=== PATIENT | male | born 1975 | race Caucasian/White ===

== ENCOUNTER 2021-07-20 10:09 | Inpatient (IN) | payer SELFPAY ==
[~2021-07-20] VITALS: Ht 172.7 cm; Wt 130.3 kg
[2021-07-20] MEDS ORDERED: PANTOPRAZOLE SODIUM 40 MG/VIAL IV STA (18:01)
[2021-07-20] MEDS ORDERED: ONDANSETRON HCL 4MG/2ML INJ IV STA (18:01)
[2021-07-20] MEDS ORDERED: SODIUM CHLORIDE 0.9% 1,000 ML IV ONE (18:15)
[2021-07-20 18:24] LABS: BASOPHILS % 0.4 % (0.0-2.0); EOSINOPHILS % 0.2 % (0.0-5.0); HEMATOCRIT. 25.7 % (42.0-52.0); HEMOGLOBIN. 8.7 g/dL (14.0-18.0); LYMPHOCYTES % 27.2 % (20.0-50.0); MEAN CORPUSCULAR HEMOGLOBIN 30.3 pg (28.0-32.0); MEAN CORPUSCULAR VOLUME 89.6 fL (80.0-94.0); MEAN PLATELET VOLUME 9.4 fl (7.4-10.4); MONOCYTES % 5.3 % (2.0-8.0); NEUTROPHILS % 66.9 % (40.0-76.0); PLATELET 243 x1000/uL (130-400); RED BLOOD CELL COUNT 2.87 mill/uL (4.7-6.1); RED CELL DISTRIBUTION WIDTH 13.3 % (11.6-14.6)
[2021-07-20 18:34] LABS: INR 1.1; PARTIAL THROMBOPLASTIN TIME 21.8 sec (23.4-31.0); PROTHROMBIN TIME 11.4 sec (9.6-11.0)
[2021-07-20 18:41] LABS: CHLORIDE 111 mEq/L (98-107)
[2021-07-20 18:42] LABS: BG BASE EXCESS -2.7 mmol/L (-2.0-2.0); BG CARBOXYHEMOGLOBIN 0.3 % (0.5-1.5); BG FRACTION INSPIRED OXYGEN 21; BG HCO3 ACT 20.3 mmol/L (22.0-26.0); BG OXYHEMOGLOBIN 96.7 % (94.0-97.0); BG PCO2 28.6 mmHg (35.0-45.0); BG PH 7.468 (7.350-7.450); BG PO2 101.9 mmHg (75.0-100.0); BG TOTAL HEMOGLOBIN 9.3 g/dL (12.0-18.0); BG VENT MODE ROOM AIR
[2021-07-20 18:46] LABS: ETHANOL BLOOD < 10 mg/dL
[2021-07-20 19:54] LABS: TOTAL IRON BINDING CAPACITY 286 ug/dL (250-450)
[2021-07-20 20:19] LABS: HEMATOCRIT 26.2 % (42.0-52.0); HEMOGLOBIN 8.7 g/dL (14.0-18.0); MEAN CORPUSCULAR HEMOGLOBIN 31.1 pg (28.0-32.0); MEAN CORPUSCULAR VOLUME 93.8 fL (80.0-94.0); PLATELET 210 x1000/uL (130-400); RED BLOOD CELL COUNT 2.79 mill/uL (4.7-6.1); RED CELL DISTRIBUTION WIDTH 13.4 % (11.6-14.6)
[2021-07-20] MEDS ORDERED: ACETAMINOPHEN 325MG TABLET PO PRN ×2 (20:30)
[2021-07-20] MEDS ORDERED: ONDANSETRON HCL 4MG/2ML INJ IV PRN (20:30)
[2021-07-20] MEDS ORDERED: DIPHENHYDRAMINE 50MG/ML VIAL IV PRN (20:30)
[2021-07-20] MEDS: PANTOPRAZOLE SODIUM 40 MG/VIAL IV SCH (21:03)
[2021-07-20] MEDS: SODIUM CHLORIDE 0.9% 1,000 ML IV SCH (21:04)
[2021-07-20 22:01] LABS: CLARITY URINE CLEAR (CLEAR); COLOR URINE YELLOW (YELLOW); KETONES URINE NEGATIVE (NEGATIVE); LEUKOCYTE ESTERASE URINE TRACE (NEGATIVE); NITRITE URINE NEGATIVE (NEGATIVE); OCCULT BLOOD URINE NEGATIVE (NEGATIVE); PH URINE 5.5 (4.5-8.0); PROTEIN URINE NEGATIVE (NEGATIVE); SPECIFIC GRAVITY URINE 1.023 (1.005-1.030); UROBILINOGEN URINE 0.2 E.U./dL (0.2-1.0)
[2021-07-20 22:19] LABS: *BARBITURATES SCREEN URINE NEGATIVE (NEGATIVE)
[2021-07-20 22:20] LABS: *AMPHETAMINES SCREEN URINE NEGATIVE (NEGATIVE); *BENZODIAZEPINES SCREEN URINE NEGATIVE (NEGATIVE); *COCAINE SCREEN URINE NEGATIVE (NEGATIVE); METHADONE URINE SCREEN PRESUMTIVE POSITIVE (NEGATIVE); OPIATES URINE SCREEN PRESUMTIVE POSITIVE (NEGATIVE); PHENCYCLIDINE URINE SCREEN NEGATIVE (NEGATIVE)
[2021-07-20 22:21] LABS: CANNABINOID URINE SCREEN PRESUMTIVE POSITIVE (NEGATIVE)
[2021-07-20 23:00] VITALS: BP 127/67
[2021-07-21] VITALS (13 sets, daily range): BP systolic 102–159; BP diastolic 43–112
[2021-07-21] MEDS ORDERED: IBUP-2030 PO (00:12)
[2021-07-21] MEDS: SODIUM CHLORIDE 0.9% 1,000 ML IV SCH ×2 (06:14→16:30)
[2021-07-21] MEDS: PANTOPRAZOLE SODIUM 40 MG/VIAL IV SCH ×2 (07:42→20:04)
[2021-07-21] MEDS ORDERED: BACTERIOSTATIC SODIUM CHLORIDE 0.9% 30ML VIAL IJ ONE (08:10)
[2021-07-21 08:45] LABS: BASOPHILS % 0.3 % (0.0-2.0); EOSINOPHILS % 0.3 % (0.0-5.0); HEMATOCRIT. 26.4 % (42.0-52.0); HEMOGLOBIN. 8.6 g/dL (14.0-18.0); LYMPHOCYTES % 22.2 % (20.0-50.0); MEAN CORPUSCULAR HEMOGLOBIN 29.9 pg (28.0-32.0); MEAN CORPUSCULAR VOLUME 91.6 fL (80.0-94.0); MEAN PLATELET VOLUME 9.6 fl (7.4-10.4); MONOCYTES % 6.7 % (2.0-8.0); NEUTROPHILS % 70.5 % (40.0-76.0); PLATELET 190 x1000/uL (130-400); RED BLOOD CELL COUNT 2.88 mill/uL (4.7-6.1); RED CELL DISTRIBUTION WIDTH 13.5 % (11.6-14.6)
[2021-07-21 09:31] LABS: CHLORIDE 116 mEq/L (98-107)
[2021-07-21 09:36] LABS: PHOSPHORUS 3.2 mg/dL (2.5-4.9)
[2021-07-21] MEDS ORDERED: FENTANYL CITRATE/PF 50MCG/ML 2ML VIAL ONE (10:07)
[2021-07-21] MEDS ORDERED: MIDAZOLAM HCL 5 MG/5 ML VIAL ONE (10:07)
[2021-07-21] MEDS ORDERED: MIDAZOLAM HCL 2 MG/2 ML VIAL IV ONE (10:29)
[2021-07-21] MEDS ORDERED: FENTANYL CITRATE/PF 50MCG/ML 2ML VIAL IV ONE (10:30)
[2021-07-21] MEDS ORDERED: INFLUENZA VACCINE 05/PF 0.5 ML SYRINGE IM ONE (12:00)
[2021-07-21] MEDS ORDERED: LIDO700A30 TP (18:39)
[2021-07-21] MEDS ORDERED: HYDR-4001 MT (18:39)
[2021-07-21] MEDS ORDERED: NALOXONE HCL 0.4MG/ML VIAL IV PRN (19:15)
[2021-07-21] MEDS: HYDROCODONE/ACETAMINOPHEN 5/325MG TABLET PO PRN (20:05)
[2021-07-21] MEDS: METOPROLOL TARTRATE 25MG TABLET PO SCH (21:12)
[2021-07-22] VITALS (16 sets, daily range): BP systolic 124–166; BP diastolic 75–129
[2021-07-22] MEDS: HYDROCODONE/ACETAMINOPHEN 5/325MG TABLET PO PRN ×6 (00:21→21:29)
[2021-07-22] MEDS: SODIUM CHLORIDE 0.9% 1,000 ML IV SCH ×2 (03:08→12:56)
[2021-07-22] MEDS: PANTOPRAZOLE SODIUM 40 MG/VIAL IV SCH ×2 (08:24→21:28)
[2021-07-22] MEDS: METOPROLOL TARTRATE 25MG TABLET PO SCH ×2 (08:25→21:28)
[2021-07-22 12:05] LABS: MEAN CORPUSCULAR HEMOGLOBIN 29.9 pg (28.0-32.0); PLATELET 152 x1000/uL (130-400); RED BLOOD CELL COUNT 2.25 mill/uL (4.7-6.1); RED CELL DISTRIBUTION WIDTH 13.2 % (11.6-14.6)
[2021-07-22 12:08] LABS: HEMATOCRIT 20.2 % (42.0-52.0); HEMOGLOBIN 6.7 g/dL (14.0-18.0)
[2021-07-23] VITALS (12 sets, daily range): BP systolic 131–160; BP diastolic 75–104
[2021-07-23] MEDS: HYDROCODONE/ACETAMINOPHEN 5/325MG TABLET PO PRN ×5 (00:39→22:22)
[2021-07-23] MEDS: SODIUM CHLORIDE 0.9% 1,000 ML IV SCH (03:59)
[2021-07-23 07:06] LABS: HEMATOCRIT 23.1 % (42.0-52.0); HEMOGLOBIN 8.1 g/dL (14.0-18.0); MEAN CORPUSCULAR HEMOGLOBIN 30.6 pg (28.0-32.0); MEAN CORPUSCULAR VOLUME 86.9 fL (80.0-94.0); PLATELET 155 x1000/uL (130-400); RED BLOOD CELL COUNT 2.66 mill/uL (4.7-6.1); RED CELL DISTRIBUTION WIDTH 13.6 % (11.6-14.6)
[2021-07-23] MEDS: METOPROLOL TARTRATE 25MG TABLET PO SCH ×2 (07:59→20:12)
[2021-07-23] MEDS: PANTOPRAZOLE SODIUM 40 MG/VIAL IV SCH ×2 (08:29→20:07)
[2021-07-23 15:41] LABS: HEMOGLOBIN 8.4 g/dL (14.0-18.0)
[2021-07-24] VITALS: BP 108/92
[2021-07-24 03:58] VITALS: BP 122/86
[2021-07-24] MEDS: HYDROCODONE/ACETAMINOPHEN 5/325MG TABLET PO PRN ×2 (04:01→10:06)
[2021-07-24 06:55] LABS: BASOPHILS % 0.7 % (0.0-2.0); EOSINOPHILS % 1.5 % (0.0-5.0); HEMATOCRIT. 22.7 % (42.0-52.0); HEMOGLOBIN. 7.8 g/dL (14.0-18.0); LYMPHOCYTES % 27.2 % (20.0-50.0); MEAN CORPUSCULAR HEMOGLOBIN 30.4 pg (28.0-32.0); MEAN CORPUSCULAR VOLUME 88.6 fL (80.0-94.0); MEAN PLATELET VOLUME 8.9 fl (7.4-10.4); MONOCYTES % 8.9 % (2.0-8.0); NEUTROPHILS % 61.7 % (40.0-76.0); PLATELET 188 x1000/uL (130-400); RED BLOOD CELL COUNT 2.56 mill/uL (4.7-6.1); RED CELL DISTRIBUTION WIDTH 13.7 % (11.6-14.6)
[2021-07-24 07:19] LABS: CHLORIDE 107 mEq/L (98-107)
[2021-07-24 08:00] VITALS: BP 137/65
[2021-07-24] MEDS: PANTOPRAZOLE SODIUM 40 MG/VIAL IV SCH (08:59)
[2021-07-24] MEDS: METOPROLOL TARTRATE 25MG TABLET PO SCH (08:59)
[2021-07-24 12:00] VITALS: BP 147/103
[2021-07-24 14:27] VITALS: BP 137/65
== END 2021-07-24 15:24 | disposition home or self-care (01) | DRG 242 ==
LOC: ER 17:54 → MICUSO 19:01 → EDBEDREQ 19:06 → 3WST 21:56
PROVIDERS: ADMIT Internal Medicine; ATTEND Internal Medicine
PROC: 0DB78ZX Excision of Stomach, Pylorus, Via Natural or Artificial Opening Endoscopic, Diagnostic (ICD-10-PCS; 2021-07-21)
PROC: 30233N1 Transfusion of Nonautologous Red Blood Cells into Peripheral Vein, Percutaneous Approach (ICD-10-PCS; principal; 2021-07-22)
DX: K22.6 Gastro-esophageal laceration-hemorrhage syndrome (principal); E46 Unspecified protein-calorie malnutrition; D50.0 Iron deficiency anemia secondary to blood loss (chronic); E66.9 Obesity, unspecified; I10 Essential (primary) hypertension; F10.11 Alcohol abuse, in remission; K44.9 Diaphragmatic hernia without obstruction or gangrene; Z20.822 Contact with and (suspected) exposure to COVID-19; S39.012A Strain of muscle, fascia and tendon of lower back, initial encounter; X58.XXXA Exposure to other specified factors, initial encounter; M47.817 Spondylosis without myelopathy or radiculopathy, lumbosacral region; M48.061 Spinal stenosis, lumbar region without neurogenic claudication; R00.0 Tachycardia, unspecified; R73.9 Hyperglycemia, unspecified; K29.00 Acute gastritis without bleeding; T39.395A Adverse effect of other nonsteroidal anti-inflammatory drugs [NSAID], initial encounter; Z68.41 Body mass index [BMI] 40.0-44.9, adult; Z59.01 Sheltered homelessness; Z88.0 Allergy status to penicillin; Z79.1 Long term (current) use of non-steroidal anti-inflammatories (NSAID); Y93.89 Activity, other specified; Y92.89 Other specified places as the place of occurrence of the external cause; Y99.8 Other external cause status
CPT/HCPCS: 36415; 36600; 71045; 72131; 72192; 73502; 80048; 80053; 80305; 80320; 81003; 82375; 82805; 82962; 83036; 83540; 83550; 83735; 84100; 84484; 85014; 85018; 85025; 85027; 85044; 86850; 86900; 86920; 87426; 88305; 88312; 88313; 90686; 93005; 97162; 99291; C9113; J2250; J2405; J3010; J3490; J7030; P9016; G0480